=== PATIENT | female | born 1995 | race African-American/Black ===

== ENCOUNTER 2017-03-08 16:44 | Emergency (ER) | payer OTHER ==
[~2017-03-08] VITALS: Ht 172.7 cm; Wt 73.9 kg
[2017-03-08 16:48] VITALS: TEMP 36.8; Ht 172.7 cm; Wt 73.9 kg
--- NOTE | 2017-03-08 17:17 | EMERGENCY ROOM VISIT NOTE ---
History Report prepared by Valerie: Darian Garay Under the Supervision of: Dr. Jeanette Castillo D.O. First contact with patient: 16:55 Chief Complaint: NASAL PAIN/INJURY Stated Complaint: NOSE BRUISE,BUMP History of Present Illness The patient is a 21 year old female who presents to the Emergency Room with complaints of persistent nasal pain that started 2 days ago. The patient says that she was on an intense run and felt normal during the run, and after returning home from the run and starting to rehydrate, began to feel slightly lightheaded that she went to sit down in a chair, she passed out. The patient's friend says that the patient was almost unconscious and the friends brought the patient into bed. The patient was conscious at times, and would respond with random words, but was not too coherent. The patient's lips were noted to be really pale, and the patient was having cold sweats. A minute later, the patient 's friends heard a thud, and the patient was on the floor, presumably falling off the bed. After hitting the floor, the patient's friends say that the patient started gaining more consciousness and started responding a bit better. The patient says that she is a regular runner, but may have ran a little harder than usual. She runs 15 minute sprints. The patient states that her nose was bleeding a bit after the fall, but has not had any nose bleeds since then. She does not remember falling off the bed. The patient also says that her nose has been swollen and puffy, but that is lessening. She denies any headaches, dizziness, wooziness, shortness of breath, chest pain, or diarrhea. The patient only has the persistent nasal pain. No seizure-like activity was denied by the patient's friend. The patient says that she has never blacked out before. She notes that she was not drinking enough water that day and hardly drink any prior to the run. The patient ran again today and felt fine. She has no chance of , and she has not had any changes in her periods. She does not drink alcohol. She denies any recent illness, any history of heart problems in her or the family. Source of History: patient, friend Onset: 2 days ago Position: nose Quality: other (pain) Timing: other (persistent) Associated Symptoms: + LOC, + diaphoresis (during episode), No headache, No chest pain, No SOB, No diarrhea Note: Associated symptoms: Nasal swelling and puffiness. Does not remember falling. Denies dizziness, wooziness. Review of Systems See HPI for pertinent positives & negatives. A total of 10 systems reviewed and were otherwise negative. Past Medical & Surgical Medical Problems: (1) No chronic problems Family History No pertinent family history Social History Smoking Status: Never Smoker Marital Status: single Housing Status: lives with roommate Occupation Status: student Current/Historical Medications No Active Prescriptions or Reported Meds Allergies Coded Allergies: No Known Allergies (Unverified , 03/08/17) Physical Exam Vital Signs Date Time Temp Pulse Resp B/P (MAP) Pulse Ox O2 Delivery O2 Flow Rate FiO2 03/08/17 18:25 66 16 126/69 100 03/08/17 16:48 36.8 69 18 102/69 97 Room Air Physical Exam GENERAL: alert, well appearing, well nourished, no distress, non-toxic EYE EXAM: normal conjunctiva, PERRL and EOM's grossly intact OROPHARYNX: no exudate, no erythema, lips, buccal mucosa, and tongue normal and mucous membranes are moist NECK: supple, no nuchal rigidity, no adenopathy, non-tender LUNGS: Clear to auscultation. Normal chest wall mechanics HEART: no murmurs, S1 normal and S2 normal ABDOMEN: abdomen soft, non-tender, normo-active bowel sounds, no masses, no rebound or guarding. BACK: Back is symmetrical on inspection and there is no deformity, no midline tenderness, no CVA tenderness. SKIN: no rashes and no bruising UPPER EXTREMITIES: upper extremities are grossly normal. LOWER EXTREMITIES: No pitting edema. NEURO EXAM: Normal sensorium, cranial nerves II-XII grossly intact, normal speech, no gross weakness of arms, no gross weakness of legs. No drift. Finger to nose intact. Gross sensation intact. Medical Decision & Procedures ER Provider Diagnostic Interpretation: X-ray results have been interpreted by the radiologist and reviewed by me. NASAL BONES MIN 3 VIEWS CLINICAL HISTORY: Nasal pain, trauma COMPARISON STUDY: None. FINDINGS: No acute fractures within the nasal bones. The nasal septum appears midline and intact. Soft tissues are unremarkable. IMPRESSION: No acute nasal bone fractures. Electronically signed by: Wei Nickerson M.D. 03/08/2017 5:58 PM Dictated Date/Time: 03/08/2017 5:56 PM ECG Indication: syncope Rate (beats per minute): 67 Rhythm: normal sinus Findings: no acute ischemic change, no ectopy, other (normal intervals, normal axis, no evidence of Brugada, no evidence of WPW) ED Course 1704: The patient was evaluated in room A10. A complete history and physical exam was performed. 1815: Upon reevaluation, the patient is resting comfortably. I discussed the findings and the treatment plan with the patient. She verbalizes agreement and understanding. She was discharged home. Medical Decision Blood pressure screening: Patient was found to have normal blood pressure on screening and does not require follow-up. No evidence of traumatic injury. Patient well-appearing and all symptoms had quickly resolved with no recurrence over the last 48 hours. Patient had no symptoms during exertion, and admitted to poor by mouth intake that day prior to her exercise. Patient states she did have mild prodromal symptoms leading up to the event 2 days ago, has had no recurrence of any of those since either. Discussed with patient differential diagnosis of syncope, need for close follow up with family doctor as precaution, symptoms watch and return for, she verbalized understanding was agreeable with plan. Patient with a normal neuro exam today, EKG reassuring, vital signs normal. Given lack of any other complaints or findings, did not feel patient warranted any other imaging at this time. I have a very low suspicion for any occult traumatic injury. Impression Primary Impression: Nose pain Scribe Attestation The scribe's documentation has been prepared under my direction and personally reviewed by me in its entirety. I confirm that the note above accurately reflects all work, treatment, procedures, and medical decision making performed by me. Departure Information Dispostion Home / Self-Care Prescriptions No Active Prescriptions or Reported Meds Referrals No Doctor, Assigned (PCP) Patient Instructions [facility] Additional Instructions You may use Tylenol and ibuprofen as needed for pain. Please stay well- hydrated when your exercising. If you have any worsening pain, develop nosebleeds, headaches, dizziness, chest pain, palpitations, have an episode of blacking out, runny other new concerns, please return the emergency room immediately.
--- NOTE | 2017-03-08 17:59 | DIAGNOSTIC IMAGING REPORT ---
NASAL BONES MIN 3 VIEWS CLINICAL HISTORY: Nasal pain, trauma COMPARISON STUDY: None. FINDINGS: No acute fractures within the nasal bones. The nasal septum appears midline and intact. Soft tissues are unremarkable. IMPRESSION: No acute nasal bone fractures. Electronically signed by: Wei Nickerson M.D. 03/08/2017 5:58 PM Dictated Date/Time: 03/08/2017 5:56 PM
[2017-03-08 18:25] VITALS: BP 126/69; PULSE 66; O2SAT 100
== END 2017-03-08 18:26 | disposition home or self-care (01) ==
LOC: C.EDB 16:46 → C.EDA 18:26
DX: J34.89 Other specified disorders of nose and nasal sinuses (principal); W06.XXXA Fall from bed, initial encounter